=== PATIENT | female | born 1995 | race Caucasian/White ===

== ENCOUNTER 2019-02-02 12:09 | Day surgery (SDC) | payer OTHER, MEDICAID, SELFPAY ==
[2019-02-01 07:28] VITALS: BMI 24.2
[2019-02-02] VITALS (7 sets, daily range): BP systolic 98–138; BP diastolic 65–72; PULSE 61–86; RESP 10–16; TEMP 36.6–37.3; O2SAT 100; BMI 24.2
--- NOTE | 2019-02-02 | PATH_ITS ---
[facility] Accession Number: [id number] . 01 Material submitted: . product of conception - PRODUCTS OF CONCEPTION . 02 Diagnosis: Products of Conception: Products of conception identified. MRV 02/06/2019 1414 Local . 02 Electronically signed: . Nu Gomez MD, Pathologist NPI- [id number] . 01 Gross description: . Received in formalin, labeled retained products of conception, are multiple fragments of robert rubbery tissue (4.6 x 2.7 x 1.3 cm in aggregate). No tissue is identified. Entirely submitted in cassettes A1-A3. ([id number]) /MRV 02/03/2019 1034 Local . 02 Pathologist provided ICD-10: O02.1 . 02 CPT . 076735 Performed at: 01 [facility] [address] [id number] MD Lee Parish MD Phone: [phone] Performed at: 02 [facility] [address] [place] [id number] MD Lexis Mc MD Phone: [phone]
[2019-02-02] MEDS: LACTATED RINGERS 1,000 ML 100 ML IV (13:11)
--- NOTE | 2019-02-02 16:09 | SUR.OPER ---
Lithotomy on padded OR bed, head on pillow, arms secured on padded arm boards at <90 degrees abduction. Legs secured in padded yellow fins stirrups.
--- NOTE | 2019-02-02 16:26 | PM.HP.1 ---
History of Present Illness History of Present Illness Date Patient Seen: 02/02/19 Time Patient Seen: 15:55 Chief complaint: [id number] Narrative: Patient is a 23-year-old 1 para 0 with retained products conception after termination and IUD in place She is here for removal of IUD, suction D&C for removal of retained products of conception and replacement with Mirena IUD Patient History Medical History (Updated 02/01/19 @ 14:12 by Ni Morgan [facility]) Abnormal Pap smear of cervix (Acute ~2015) (Acute ~11/15/18) Acne (Acute ~2006) History of vertigo (Acute ~2017) IUD (intrauterine device) in place (Acute) Migraine (Acute) Social History (Updated 02/01/19 @ 14:08 by Ni Morgan [facility]) marital status: unmarried,single household members: significant other and other pets and animals: Yes (Dog & Cat) education level: high school occupational status: employed current occupational exposures/hazards: No ([employer]) travel history: recurrent seatbelt use: always helmet use: Yes water heater temp set < 120 deg: Yes working smoke detector in home: Yes fire extinguisher in home: Yes carbon monox detector in home: Yes firearms in home: No do you feel safe at home: Yes Smoking Status: Never smoker alcohol intake: current substance use type: marijuana during the past year weight has: remained stable well-balanced diet: daily or most days daily servings fruits/ve-4 caffeine: Yes (Rare) eating out: 1-3 times/week Type(s) of exercise: other frequency: 3-4 times per week duration: 30-45 minutes/day additional social history: Physical Activities: Laborious job, dog walking, and occasional hiking. Travel history: Travels regularly around states/out of the country few times. Family & Social History Social History: household members significant other,other Tobacco & Substance use: Smoking Status Never smoker alcohol intake current Meds Home Medications and Allergies Home Medications Medication Instructions Recorded Confirmed Type levonorgestrel 20 mcg/24 hours (5 1 device INTRAUTERINE CONT 01/31/19 02/02/19 History yrs) 52 mg intrauterine device Allergies Allergy/AdvReac Type Severity Reaction Status Date / Time No Known Drug Allergies Allergy Verified 02/02/19 12:32 Exam Vital Signs (past 8 hours): - 02/02/19 12:34 Temperature 98.8 F Pulse Rate 86 Respiratory Rate 16 Blood Pressure 108/68 Pulse Oximetry 100 Oxygen Delivery Method Room Air Narrative Exam Narrative: HEENT: No thyromegaly, no anterior cervical or supraclavicular lymphadenopathy. Lungs:Clear to auscultation bilaterally, no wheezes. Cardiovascular: Regular rate and rhythm, no murmurs, rubs, or gallops. Abdomen: No scars. No hepatosplenomegaly. No masses palpable. External genitalia: Normal Vagina: Normal Cervix: Normal Nulliparous Bimanual exam: 7 Week size uterus. Mobile.] Rectal: No masses. Assessment & Plan Assessment & Plan narrative: Assessment: 23-year-old 1 para 0 with retained products of conception and an IUD in place Plan: Removal of IUD, suction D&C for removal of retained products conception, and replacement with Mirena IUD Time Spent With Patient Time with patient: 15-24 minutes
--- NOTE | 2019-02-02 16:28 | PM.PREOP ---
Pre-operative Note Interval Note History & Physical reviewed/Exam performed by Physician: Yes Changes to H&P: No
--- NOTE | 2019-02-02 16:52 | SUR.PHASEII ---
Patient A/O x 4. VARGHESE's x4. Tolerating po. Pain tolerable at 3\10.
--- NOTE | 2019-02-02 17:29 | SUR.PHASEII ---
assumed care at 1700, pt resting quietly, Harshal at bedside. States that pain is tolerable 'not bad' with just cramping. No questions/concerns. 1728 Instructions reviewed and to car by Young Miranda RN
--- NOTE | 2019-02-22 05:04 | PM.GYNOP.1 ---
Operative Date/Time/Diagnoses Date of procedure: 02/02/19 Time of procedure: 14:00 Pre-op diagnosis: Retained products of conception Post-op diagnosis: same Procedure & Clinicians Procedure: Procedures Operation Date: 02/02/19 13:15 Actual Procedures Side Surgeon p Suction Dilation and Curettage Not Applicable Myra Neri MD s Intrauterine Device Removal/Replacement IUD Not Applicable Myra Neri MD Indications: Retained products conception Surgeon: Myra Neri Anesthesia Type: General (LMA) Operative Notes Findings: Eight week size anteverted uterus Large piece of placental tissue at the right fundus of the uterus Mirena IUD in place Closure Type: not applicable Specimen(s): uterine contents (Products conception) Estimated blood loss (mL): 75 Blood products transfused: none Procedure in detail: After informed consent was obtained, the patient was taken to the operating room where she was placed in the dorsal supine position. After adequate LMA general anesthesia was achieved, she was placed in the dorsal lithotomy position, and prepped and draped in the usual sterile fashion. A time-out was performed. A bimanual exam was performed which revealed an 8 week size anteverted uterus. A bivalve speculum was placed into the vagina and the anterior lip of the cervix grasped with a single-tooth tenaculum. The Mirena IUD strings were grasped and it was removed without difficulty. The cervical os was sequentially dilated to the # 8 Hegar dilator. The # 8 curved plastic curette passed easily into the endometrial cavity. Several passes with suction revealed tissue. The polyp forceps were used to remove several large pieces of placenta. Diameter was approximately 5 cm x 4 cm. Several more passes with suction revealed small amount of tissue. On the last pass there was blood only. Sharp curettage was performed yielding blood only. One more pass with suction revealed blood only. The instruments were removed from the uterus. The Mirena IUD passed to the fundus of the uterus and was released without difficulty. The strings were cut to 1.5 cm. The single-tooth tenaculum was removed from the anterior lip of the cervix. The bivalve speculum was removed from the vagina. Sponge, lap, and instrument counts were correct x2. The patient tolerated the procedure well, was taken to PACU in stable condition. Complications: none Post-operative Condition: stable Disposition: PACU Plan for aftercare: Home after recovery
== END 2019-02-02 16:28 | disposition home or self-care (01) ==
PROVIDERS: Visit Provider Obstetrics & Gynecology
PROC: (CPT 58120; principal; 2019-02-02 13:15)
PROC: (CPT 58301; 2019-02-02 13:15)
DX: O73.1 Retained portions of placenta and membranes, without hemorrhage (principal); Z30.433 Encounter for removal and reinsertion of intrauterine contraceptive device
CPT/HCPCS: 58301; 58300; 59812; 59820; J1100; J1885; J2250; J2405; J2704; J3010; J7298